=== PATIENT | female | born 1960 | race African-American/Black ===

== ENCOUNTER 2016-07-10 01:24 | Emergency (ER) | payer SELFPAY ==
[~2016-07-10] VITALS: Ht 160 cm; Wt 59.9 kg
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
[2016-07-10 02:04] VITALS: BP 145/78
[2016-07-10] MEDS ORDERED: IBUPROFEN600 MG ORAL (03:23)
[2016-07-10] MEDS ORDERED: HYDROCODON-ACE1 EA15 ORAL (03:23)
[2016-07-10 03:27] VITALS: BP 142/72
--- NOTE | 2016-07-10 09:38 | Diagnostic Imaging Report ---
Indication: Head trauma/pain Technique: Continuous helical CT scanning of the head was performed utilizing automated exposure control without intravenous contrast material. Axial and coronal reconstructions were obtained. Comparison: None CT dose: Total DLP 1305 mGycm; CTDI vol 70.4 mGy Findings: There is no acute intracranial hemorrhage, mass effect or cortical edema. The ventricles, cisterns and sulci are within normal limits. The posterior fossa and fourth ventricle are unremarkable. Sellar and suprasellar regions are grossly unremarkable. Visualized mastoid air cells and paranasal sinuses are unremarkable. No focal lesions of the bony calvarium or soft tissues of the scalp are seen. Impression: No evidence of acute intracranial hemorrhage, mass effect or cortical edema. MRI may be obtained for more sensitive evaluation as clinically indicated. The above report is concordant with preliminary reading by [facility]. The CT scanner at [facility] is accredited by the [employer] and the scans are performed using protocols designed to limit radiation exposure to as low as reasonably achievable to attain images of sufficient resolution adequate for diagnostic evaluation.
== END 2016-07-10 03:27 | disposition home or self-care (01) ==
LOC: EMR 01:55
DX: S09.8XXA Other specified injuries of head, initial encounter (principal); V43.62XA Car passenger injured in collision with other type car in traffic accident, initial encounter; Y92.410 Unspecified street and highway as the place of occurrence of the external cause; I10 Essential (primary) hypertension; R51 Headache; E11.9 Type 2 diabetes mellitus without complications; F17.200 Nicotine dependence, unspecified, uncomplicated
CPT/HCPCS: 70450; 99284

== ENCOUNTER 2017-11-21 07:31 | Emergency (ER) | payer OTHER ==
[~2017-11-21] VITALS: Ht 160 cm; Wt 62.6 kg
[~2017-11-21 07:31] MED LIST: HYDROCODON-ACE1 EA15 ORAL; IBUPROFEN600 MG ORAL
[2017-11-21 07:33] VITALS: BP 146/86
[2017-11-21] MEDS ORDERED: oxyCODONE HCL/Acetaminophen 5/325mg PO ONE (07:45)
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
[2017-11-21] MEDS ORDERED: ROBAXIN500 MG PO (09:46)
[2017-11-21] MEDS ORDERED: TRAMADOL HCL50 MG ORAL (09:46)
[2017-11-21] MEDS ORDERED: IBUPROFEN600 MG ORAL (09:46)
[2017-11-21 10:00] VITALS: BP 146/86
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
== END 2017-11-21 10:01 | disposition home or self-care (01) ==
LOC: EDBD 07:31 → EMR 07:51
DX: S20.212A Contusion of left front wall of thorax, initial encounter (principal); E11.9 Type 2 diabetes mellitus without complications; I10 Essential (primary) hypertension; V43.52XA Car driver injured in collision with other type car in traffic accident, initial encounter; Y92.410 Unspecified street and highway as the place of occurrence of the external cause
CPT/HCPCS: 71045; 93005; 99284

== ENCOUNTER 2017-11-27 03:40 | Emergency (ER) | payer OTHER ==
[~2017-11-27] VITALS: Ht 165.1 cm; Wt 54.4 kg
[~2017-11-27 03:40] MED LIST changes: +ROBAXIN500 MG PO; +TRAMADOL HCL50 MG ORAL
[2017-11-27 03:56] VITALS: BP 135/90
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
[2017-11-27] MEDS ORDERED: Tetanus/Diptheria/Pertussis Vaccine 0.5ml Syr IM ONE (04:15)
[2017-11-27] MEDS ORDERED: Bacitracin Oint UD TOPIC ONE ×2 (04:15→04:45)
[2017-11-27] MEDS ORDERED: Bactrim-DS 1 tab ORAL ONE (04:15)
[2017-11-27] MEDS ORDERED: BACITRACIN15 GM TOPIC (04:51)
[2017-11-27] MEDS ORDERED: HYDROCORTISONE-30 GM TOPIC (04:51)
[2017-11-27] MEDS ORDERED: BACTRIM DS TAB1 EAC1 ORAL (04:51)
[2017-11-27] MEDS ORDERED: BENADRYL25 MG ORAL (04:51)
[2017-11-27 05:05] VITALS: BP 135/90
[2017-11-27 05:06] VITALS: BP 126/86
== END 2017-11-27 05:07 | disposition home or self-care (01) ==
LOC: EMR 04:05
DX: S20.469A Insect bite (nonvenomous) of unspecified back wall of thorax, initial encounter (principal); S30.861A Insect bite (nonvenomous) of abdominal wall, initial encounter; W57.XXXA Bitten or stung by nonvenomous insect and other nonvenomous arthropods, initial encounter; Y93.89 Activity, other specified; Y92.013 Bedroom of single-family (private) house as the place of occurrence of the external cause; S20.212D Contusion of left front wall of thorax, subsequent encounter; V43.52XD Car driver injured in collision with other type car in traffic accident, subsequent encounter; Z23 Encounter for immunization; E11.9 Type 2 diabetes mellitus without complications; I10 Essential (primary) hypertension
CPT/HCPCS: 90471; 90715; 99283

== ENCOUNTER 2018-08-20 21:55 | Emergency (ER) | payer OTHER ==
[~2018-08-20] VITALS: Ht 157.5 cm; Wt 65.8 kg
[~2018-08-20 21:55] MED LIST changes: +BACITRACIN15 GM TOPIC; +BACTRIM DS TAB1 EAC1 ORAL; +BENADRYL25 MG ORAL; +HYDROCORTISONE-30 GM TOPIC
[2018-08-20 22:07] VITALS: BP 130/70
[2018-08-20] MEDS ORDERED: Cephalexin 500mg cap ORAL ONE (22:30)
[2018-08-20] MEDS ORDERED: Phenazopyridine 200mg tab ORAL ONE (22:30)
--- NOTE | 2018-08-20 22:39 | NUR ---
ED Nurse Note: pt walked in to ER c/o vaginal bleeding since Monday. pt aao x4 and ambulatory with weak gait due to abdominal pain 01/10. skin clean and intact. calm and cooperative.
--- NOTE | 2018-08-20 22:41 | Emergency Room Report ---
History of Present Illness General Chief Complaint: Female Urogenital Problems Source: Patient Present Illness HPI Is a 58-year-old female with history of hypertension and diabetes. She presents with chief complaint of dysuria and hematuria. Also with urgency and frequency. Also with pain. Onset for last couple days. No back pain. No vomiting. No fever. Pain is 8 out of 10. Worse with urination. Allergies: Coded Allergies: No Known Allergies (Unverified , 07/10/16) Patient History Past Medical History: see triage record, old chart reviewed, DM, HTN Past Surgical History: other Pertinent Family History: none Social History: Denies: smoking Last Menstrual Period: 5 YEARS AGO Now: No Immunizations: other Reviewed Nursing Documentation: PMH: Agreed; PSxH: Agreed Nursing Documentation-PMH Past Medical History: No History, Except For Hx Hypertension: Yes Hx Diabetes: Yes Review of Systems Eye: Denies: eye pain, blurred vision ENT: Denies: ear pain, nose congestion, throat swelling Respiratory: Denies: cough, shortness of breath Cardiovascular: Denies: chest pain, palpitations Gastrointestinal: Denies: abdominal pain, diarrhea, nausea, vomiting Genitourinary: Reports: dysuria, frequency, pain, urgency Musculoskeletal: Denies: back pain, joint pain Skin: Denies: rash Neurological: Denies: headache, numbness Endocrine: Denies: increased thirst, increased urine Hematologic/Lymphatic: Denies: easy bruising All Other Systems: negative except mentioned in HPI Physical Exam Vital Signs Date Time Temp Pulse Resp B/P (MAP) Pulse Ox O2 Delivery O2 Flow Rate FiO2 08/20/18 22:00 98.4 79 16 94 Room Air 08/20/18 22:07 130/70 vitals normal Sp02 EP Interpretation: reviewed, normal General Appearance: well appearing, no apparent distress, alert Head: normocephalic, atraumatic Eyes: bilateral eye PERRL, bilateral eye EOMI ENT: hearing grossly normal, normal pharynx Neck: full range of motion, supple, no meningismus Respiratory: chest non-tender, lungs clear, normal breath sounds Cardiovascular #1: regular rate, rhythm, no murmur Gastrointestinal: normal bowel sounds, non tender, no mass, no organomegaly, no bruit, non-distended Musculoskeletal: back normal, gait/station normal, normal range of motion Psychiatric: mood/affect normal Skin: warm/dry Medical Decision Making Diagnostic Impression: Primary Impression: UTI (urinary tract infection) Qualified Codes: N30.01 - Acute cystitis with hematuria ER Course Patient with symptoms consistent with UTI. No evidence of any pyelonephritis or sepsis. We'll discharge home. Dose of antibiotics given here. Last Vital Signs Date Time Temp Pulse Resp B/P (MAP) Pulse Ox O2 Delivery O2 Flow Rate FiO2 08/20/18 22:07 98.4 76 16 130/70 94 Room Air Status: improved Disposition: HOME, SELF-CARE Condition: Stable Scripts Cephalexin* (KEFLEX*) 500 Mg Capsule 500 MG ORAL TID, #21 CAP Prov: Brandt Lewis MD 08/20/18 Phenazopyridine Hcl* (PYRIDIUM*) 100 Mg Tablet 200 MG ORAL THREE TIMES A DAY for 3 Days, TAB Prov: Brandt Lewis MD 08/20/18 Referrals: [facility],REFERRING (PCP) Patient Instructions: Urinary Tract Infection Additional Instructions: Increase fluids. Follow-up with your Dr. in 2-3 days for recheck. Return for fever, increasing pain, nausea vomiting or any concern. Brandt Lewis MD August 20, 2018 22:41
[2018-08-20] MEDS ORDERED: CEPHALEXIN500 MG ORAL (22:44)
[2018-08-20] MEDS ORDERED: PHENAZOPYRIDIN100 MG ORAL (22:44)
[2018-08-20 22:48] LABS: APPEARANCE,URINE CLOUDY; BILIRUBIN, URINE NEGATIVE (NEGATIVE); COLOR,URINE PALE YELLOW; GLUCOSE, URINE (UA) NEGATIVE (NEGATIVE); KETONES,URINE NEGATIVE (NEGATIVE); LEUKOCYTE ESTERASE ,URINE 3+ (NEGATIVE); NITRITE,URINE NEGATIVE (NEGATIVE); PH,URINE 7 (4.5-8.0); PROTEIN,URINE 2+ (NEGATIVE); UROBILINOGEN,URINE NORMAL MG/DL (0.0-1.0)
[2018-08-20 22:55] VITALS: BP 130/70
--- NOTE | 2018-08-20 22:56 | NUR ---
ER DISCHARGE NOTE: Patient is cleared to be discharged per ERMD, pt is aox4, on room air, with stable vital signs. pt was given dc and prescription instructions, pt was able to verbalize understanding, pt id band removed. pt is able to ambulate with steady gait. pt took all belongings.
== END 2018-08-20 22:56 | disposition home or self-care (01) ==
LOC: EMR 22:16
DX: N30.01 Acute cystitis with hematuria (principal); I10 Essential (primary) hypertension; E11.9 Type 2 diabetes mellitus without complications
CPT/HCPCS: 81003; 87086; 87181; 99283

== ENCOUNTER 2020-01-04 19:20 | Emergency (ER) | payer OTHER ==
[~2020-01-04] VITALS: Ht 157.5 cm; Wt 68.0 kg
[~2020-01-04 19:20] MED LIST changes: +CEPHALEXIN500 MG ORAL; +PHENAZOPYRIDIN100 MG ORAL
[2020-01-04 19:40] VITALS: BP 120/69
--- NOTE | 2020-01-04 19:40 | NUR ---
ED Nurse Note: Recieved pt, given gown and spoke with pt briefly, pt suddennly states she changed her mind and does not want to be seen, stating she has something important to do now and cant stay, pt also states she will return if needed and walked out of facility,nad noted, pt signed ama form, charge nurse aware and md.
[2020-01-04 19:42] VITALS: BP 120/69
[2020-01-04] MEDS ORDERED: Cephalexin 500mg cap ORAL ONE (19:45)
--- NOTE | 2020-01-06 21:48 | Emergency Room Report ---
History of Present Illness General Chief Complaint: Female Urogenital Problems Source: Patient Present Illness HPI Patient is a 59-year-old female presents for increased dysuria. Reports having recent onset of symptoms after oral sex. She is concerned about sexual transmitted disease. Denies any fever. Had not been vomiting. Reports having increased urinary discomfort. Allergies: Coded Allergies: No Known Allergies (Unverified , 07/10/16) COVID-19 Screening Contact w/high risk pt: No Experienced COVID-19 symptoms?: No COVID-19 Testing performed COMMUNICATIONS AGENT: No Patient History Past Medical History: see triage record Reviewed Nursing Documentation: PMH: Agreed; PSxH: Agreed Nursing Documentation-PMH Hx Hypertension: Yes Hx Diabetes: Yes Review of Systems All Other Systems: negative except mentioned in HPI Physical Exam Vital Signs Date Time Temp Pulse Resp B/P (MAP) Pulse Ox O2 Delivery O2 Flow Rate FiO2 01/04/20 19:20 97.9 18 120/69 (86) 99 Room Air General Appearance: well appearing, no apparent distress, alert, GCS 15 Head: normocephalic, atraumatic ENT: hearing grossly normal, normal voice Neck: full range of motion, supple Respiratory: normal inspection, no respiratory distress, speaking full sentences Cardiovascular #1: normal inspection Gastrointestinal: normal inspection Musculoskeletal: no calf tenderness Neurologic: alert, oriented x3, normal gait Psychiatric: normal inspection, mood/affect normal Skin: no rash Medical Decision Making Diagnostic Impression: Primary Impression: Dysuria ER Course Patient presented for dysuria. Differential diagnosis include was not limited to urinary tract infection, vaginitis, STD among others. Patient has a benign exam and does not appear to require any imaging at this time. Urinalysis was ordered but canceled after patient decided to leave the hospital and did not provide specimen. Patient does not appear to be in any acute distress. Abdominal exam is benign. Patient left the hospital AGAINST MEDICAL ADVICE. This medical record is generated with [employer] casing builder software. There may be some casing builder discrepancies related to use of this software Last Vital Signs Date Time Temp Pulse Resp B/P (MAP) Pulse Ox O2 Delivery O2 Flow Rate FiO2 01/04/20 19:42 97.9 18 120/69 99 Room Air Status: unchanged Disposition: AGAINST MEDICAL ADVICE Condition: Unknown Referrals: NON PHYSICIAN (PCP) Mert Medel MD Jan 06, 2020 21:48
== END 2020-01-04 19:50 | disposition left against medical advice (07) ==
LOC: EMR 19:45
DX: R30.0 Dysuria (principal); E11.9 Type 2 diabetes mellitus without complications; I10 Essential (primary) hypertension
CPT/HCPCS: 99282

== ENCOUNTER 2020-06-22 06:11 | Emergency (ER) | payer OTHER ==
[~2020-06-22] VITALS: Ht 160 cm; Wt 68.0 kg
[2020-06-22 06:30] VITALS: BP 138/64
--- NOTE | 2020-06-22 06:54 | NUR ---
ED Nurse Note: pt from home c/o of right knee pain x1 day, unknown if bitten by bug, c/o pain and swelling, pt is AOx4, ambulatory, vitals are stable, hx of diabetes and HTN per pt
[2020-06-22] MEDS ORDERED: TYLENOL EXTRA500 MG ORAL (07:52)
--- NOTE | 2020-06-22 07:55 | NUR ---
Cleared for discharged.
--- NOTE | 2020-06-22 09:42 | Emergency Room Report ---
History of Present Illness General Chief Complaint: Lower Extremity Injury Source: Patient Present Illness HPI 60-year-old female presents with right knee pain and swelling. Started this morning and woke her up. Pain was throbbing, 10 out of 10, nonradiating. States the pain is improved now. States it is difficult for her to walk. States it is swollen. Denies any fall or injury. No other aggravating re lieving factors. Denies any other associated symptoms Allergies: Coded Allergies: No Known Allergies (Unverified , 07/10/16) COVID-19 Screening Contact w/high risk pt: No Experienced COVID-19 symptoms?: No COVID-19 Testing performed MEDICAL ASSEMBLER: No Patient History Past Medical History: DM Past Surgical History: none Pertinent Family History: none Social History: Denies: smoking, alcohol use, drug use Now: No Immunizations: UTD Reviewed Nursing Documentation: PMH: Agreed; PSxH: Agreed Nursing Documentation-PMH Hx Cardiac Problems: No Hx Hypertension: Yes Hx Pacemaker: No Hx Asthma: No Hx COPD: No Hx Diabetes: Yes Hx Cancer: No Hx Gastrointestinal Problems: No Hx Dialysis: No History Of Psychiatric Problem: No Hx Neurological Problems: No Hx Cerebrovascular Accident: No Hx Seizures: No Review of Systems All Other Systems: negative except mentioned in HPI Physical Exam Vital Signs Date Time Temp Pulse Resp B/P (MAP) Pulse Ox O2 Delivery O2 Flow Rate FiO2 06/22/20 06:30 97.3 16 138/64 (88) 100 Room Air Sp02 EP Interpretation: reviewed, normal General Appearance: no apparent distress, alert, GCS 15, non-toxic Head: normocephalic, atraumatic Eyes: bilateral eye normal inspection, bilateral eye PERRL ENT: hearing grossly normal, normal pharynx, no angioedema, normal voice Neck: full range of motion, supple/symm/no masses Respiratory: chest non-tender, lungs clear, normal breath sounds, speaking full sentences Cardiovascular #1: regular rate, rhythm, no edema Cardiovascular #2: 2+ carotid (R), 2+ carotid (L), 2+ radial (R), 2+ radial (L), 2+ dorsalis pedis (R), 2+ dorsalis pedis (L) Gastrointestinal: normal bowel sounds, non tender, soft, non-distended, no guarding, no rebound Rectal: deferred Genitourinary: normal inspection, no CVA tenderness Musculoskeletal: back normal, normal range of motion, gait/station normal, tender - R knee. full ROM noted Neurologic: alert, motor strength/tone normal, oriented x3, sensory intact, responsive, speech normal Psychiatric: judgement/insight normal, memory normal, mood/affect normal, no suicidal/homicidal ideation Reflexes: 3+ bicep (R), 3+ bicep (L), 3+ tricep (R), 3+ tricep (L), 3+ knee (R), 3+ knee (L) Lymphatic: no adenopathy Procedures Splinting Splinting : Consent: Verbal Pre-Made Type: BARRERA wrap Pre-Proc Neuro Vasc Exam: normal Post-Proc Neuro Vasc Exam: normal Patient Tolerated: Well Complications: None Medical Decision Making Diagnostic Impression: Primary Impression: Knee pain Qualified Codes: M25.561 - Pain in right knee ER Course Hospital Course 60-year-old female presents with right knee pain Differential diagnoses include: Fracture, dislocation, sprain, contusion Clinical course Patient placed on stretcher. After initial history and physical, I ordered Xrays of R knee Xrays prelim read shows no acute fracture/dislocation. placed in barrera wrap I discussed findings with patient. There was some minimal joint space narrowing. However there is no swelling no ligament laxity nothing to suggest an infection. Patient states she cannot walk. I observed patient walking into ED without difficulty. We will provide referrals. Safe for discharge with close outpatient follow-up Diagnosis - knee pain Stable and discharged to home with prescription for tylenol. apply ice, keep elevated. weight bear as tolerated. Followup with PMD. Return to ED if symptoms recur or worsen Other X-Ray Diagnostic Results Other X-Ray Diagnostic Results : X-Ray ordered: R knee # of Views/Limited Vs Complete: 3 View Indication: Pain EP Interpretation: Yes Interpretation: no dislocation, no soft tissue swelling, no fractures Impression: No acute disease Electronically Signed by: Electronically signed by Justin Hall MD Last Vital Signs Date Time Temp Pulse Resp B/P (MAP) Pulse Ox O2 Delivery O2 Flow Rate FiO2 06/22/20 06:30 97.3 16 138/64 (88) 100 Room Air Status: improved Disposition: HOME, SELF-CARE Condition: Stable Scripts Acetaminophen* (TYLENOL EXTRA STRENGTH*) 500 Mg Tablet 500 MG ORAL Q8H PRN for Prn Headache/Temp > 101, #30 TAB 0 Refills Prov: Justin Hall MD 06/22/20 [facility] Open 24 hour /7 days a week by Appointment Only [address] [facility] [id number] Patient Instructions: Knee Pain, [id number] Jsutin Hall MD Jun 22, 2020 09:42
--- NOTE | 2020-06-22 10:23 | Diagnostic Imaging Report ---
Indication: Knee pain Technique: XRAY Knee 3v R Comparison: None Findings: Bone mineralization is within normal limits. No acute fracture or dislocation is identified. No suprapatellar joint effusion. There are mild degenerative changes with small quadriceps tendon enthesophytes. There is also some mild joint space narrowing. Atherosclerotic calcifications. No radiopaque foreign body. IMPRESSION: Mild degenerative changes. No acute fracture or dislocation.
== END 2020-06-22 07:55 | disposition home or self-care (01) ==
LOC: EMR 07:04
DX: M25.561 Pain in right knee (principal); E11.9 Type 2 diabetes mellitus without complications; I10 Essential (primary) hypertension
CPT/HCPCS: 73562; Z7502; 99283